=== PATIENT | female | born 1990 | race Caucasian/White ===

== ENCOUNTER → 2024-03-02 11:20 | Outpatient (BNVA) | payer MEDICAID, SELFPAY | PROVIDERS: PCP Nurse Practitioner Family; Visit Provider Family Medicine | DX: Z34.90 Encounter for supervision of normal pregnancy, unspecified, unspecified trimester (principal); E03.9 Hypothyroidism, unspecified; R30.0 Dysuria | CPT/HCPCS: 80307; 81000; 81025; 84144; 84439; 84443; 84702; 85025; 86592; 86762; 86803; 86850; 86900; 87086; 87340; 87491; 87591; 87624; 87806 ==

== ENCOUNTER 2024-03-27 11:12 | Outpatient (CLI) | payer MEDICAID, SELFPAY ==
--- NOTE | 2024-03-27 11:15 | US_ITS ---
WS: [id number] EARLY OBSTETRICAL ULTRASOUND (<14 WEEKS). HISTORY: Dating US COMPARISON: None available. Single intrauterine gestational sac is identified. Cardiac activity at 163 BPM. [place]-rump length sabrina sures 7.5 cm which corresponds to a gestation of 13w4d. Normal-appearing yolk sac and amnion demonstr ated. No subchorionic hemorrhage. No free fluid. Normal size ovaries with no mass. US/US OB <= 14 weeks fetus [id number] IMPRESSION: 1. Single intrauterine gestation of 13w4d with an EDC of 09/28/2024. 2. Normal cardiac activity.
--- NOTE | 2024-03-27 12:00 | US_ITS ---
WS: [id number] THYROID ULTRASOUND HISTORY: Thyroid nodule COMPARISON: 09/08/2017 Right lobe: 1.9 cm x 2.2 cm x 4.9 cm (w x ap x l). Volume: 9.5 cm3. Normal sized gland. Complex cystic mass with septations is identified involving the anterior thyroid. This is a mixed cystic and solid mass. There is now a mural nodule associated with the anterior cyst ic mass. The entire cyst measures 1.7 x 1.5 x 2.0 cm. The intramural nodular component measures 0.7 x 0.8 x 1.0 cm. There is increased vascularity within the mural nodule. Left lobe: 1.3 cm x 1.4 cm x 4.7 cm (w x ap x l). Volume: 4.1 cm3. Normal size and echotexture. No significant or dominant nodules are present. Colloid cyst in the supe rior thyroid measures 0.3 x 0.5 x 0.8 cm. Isthmus: 0.3 cm. US/US thyroid [id number] IMPRESSION: 1. TI-RADS 3; RIGHT thyroid nodule. Complex cystic nodule is changed since 09/08. There is now a mural nodule associated with the more anterior portion of this hemorrhagic nodule. The mural nodule is 0.7 x 0.8 x 1.0 cm with increased vascularity. Suggest 1 year repeat ultrasound follow-up. If this nodule increa ses in size FNA should be attempted. 2. Colloid cyst LEFT thyroid.
== END 2024-03-27 11:13 | disposition home or self-care (01) ==
LOC: RAD 11:15
PROVIDERS: PCP Nurse Practitioner Family; Visit Provider Family Medicine
DX: Z34.80 Encounter for supervision of other normal pregnancy, unspecified trimester (principal); E04.2 Nontoxic multinodular goiter
CPT/HCPCS: 76536; 76801; 80307; 81000; 81025; 84144; 84439; 84443; 84702; 85025; 86592; 86762; 86803; 86850; 86900; 87086; 87340; 87491; 87591; 87624; 87806

== ENCOUNTER → 2024-05-14 09:38 | Outpatient (BNVA) | payer MEDICAID, SELFPAY | PROVIDERS: PCP Nurse Practitioner Family; Visit Provider Family Medicine | DX: Z34.80 Encounter for supervision of other normal pregnancy, unspecified trimester (principal); A74.9 Chlamydial infection, unspecified; R30.0 Dysuria | CPT/HCPCS: 87086; 87491; 87591 ==

== ENCOUNTER 2024-05-28 13:01 | Outpatient (CLI) | payer MEDICAID, SELFPAY ==
--- NOTE | 2024-05-28 12:45 | USR_ITS ---
PROCEDURE INFORMATION: Exam: US After First Trimester, Transabdominal Exam date and time: 05/28/2024 1:08 PM Age: 33 years old Clinical indication: Screening exam; Routine US, uterus; Additional info: Anatomy US - in the next 1-2 weeks if possible LABS AND CLINICAL REPORTS: Gestational age (Established): 22 w 4 d Estimated due date (Established): 09/27/2024 TECHNIQUE: Imaging protocol: Real-time transabdominal obstetrical ultrasound of the maternal pelvis and a second or third trimester with image documentation. COMPARISON: US OB <= 14 weeks fetus [id number] 03/27/2024 11:58 AM FINDINGS: Gestation: Single live intrauterine gestation. heart rate: 144 bpm. presentation and position: Vertex. Placenta: Unremarkable. No subchorionic bleed. Placenta is anterior. Amniotic fluid (Qualitative): Amniotic fluid is normal for gestational age. Amniotic fluid index: JOSHUA is 15.1 cm. ANATOMY: midline falx: Normal cerebellum: Normal lateral ventricles: Normal cisterna magna: Normal choroid plexus: Normal face: Not well visualized heart four-chamber view, heart size and position: Normal heart right ventricular outflow tract: Normal heart left ventricular outflow tract: Normal kidneys: Normal stomach: Normal urinary bladder: Normal spine: Normal Umbilical cord and insertion: Normal. Normal 3 vessel cord upper limbs: Normal lower limbs: Normal external genitalia: Normal BIOMETRY: Gestational age (AUA): 22 weeks 6 days Estimated due date (AUA): 09/25/2024 Biparietal diameter (BPD): 5.49 cm. EGA (BPD) is 22 w 5 d. 52.3 % percentile Head circumference (HC): 20.95 cm. EGA (HC) is 23 w 0 d. 55.9 % percentile Abdominal circumference (AC): 0 cm. 0 % percentile Femur length (FL): 3.97 cm. EGA (FL) is 22 w 6 d. 46.6 % percentile FL/HC: 18.95. (Normal range: 19.09 - 20.71) FL/BPD: 72.31 MATERNAL: Uterus: Unremarkable. Cervix: Unremarkable closed cervix measuring 3.8 cm in length. Right ovary/adnexa: Obscured by lack of adequate acoustic window. Left ovary/adnexa: Obscured by lack of adequate acoustic window. Intraperitoneal space: No intraperitoneal free fluid. US/US OB >= 14 weeks fetus [id number] IMPRESSION: Single live intrauterine gestation with estimated age of 22 weeks 6 days.
== END 2024-05-28 13:02 | disposition home or self-care (01) ==
LOC: RAD 13:02
PROVIDERS: PCP Nurse Practitioner Family; Visit Provider Family Medicine
DX: Z34.80 Encounter for supervision of other normal pregnancy, unspecified trimester (principal); Z3A.22 22 weeks gestation of pregnancy
CPT/HCPCS: 76805

== ENCOUNTER → 2024-06-11 11:01 | Outpatient (BNVA) | payer MEDICAID, SELFPAY | PROVIDERS: PCP Nurse Practitioner Family; Visit Provider Family Medicine | DX: Z34.80 Encounter for supervision of other normal pregnancy, unspecified trimester (principal); Z3A.00 Weeks of gestation of pregnancy not specified | CPT/HCPCS: 82950 ==

== ENCOUNTER 2024-06-18 14:25 | Oncology outpatient (recurring) (ONCR) | payer MEDICAID, SELFPAY ==
[2024-06-18] MEDS: rho(d) immune globulin 1,500 unit Syringe 1500 UNIT IM (15:12)
== END 2024-07-05 23:59 | disposition home or self-care (01) ==
PROVIDERS: PCP Nurse Practitioner Family; Visit Provider Family Medicine
DX: O26.899 Other specified pregnancy related conditions, unspecified trimester; Z67.91 Unspecified blood type, Rh negative; Z79.899 Other long term (current) drug therapy
CPT/HCPCS: 96372; J2790

== ENCOUNTER → 2024-07-06 09:51 | Outpatient (BNVA) | payer MEDICAID, SELFPAY | PROVIDERS: PCP Nurse Practitioner Family; Visit Provider Family Medicine | DX: O99.810 Abnormal glucose complicating pregnancy (principal) | CPT/HCPCS: 82951; 82952 ==

== ENCOUNTER → 2024-08-06 11:11 | Outpatient (BNVA) | payer MEDICAID, SELFPAY | PROVIDERS: PCP Nurse Practitioner Family; Visit Provider Family Medicine | DX: Z34.90 Encounter for supervision of normal pregnancy, unspecified, unspecified trimester (principal); Z3A.00 Weeks of gestation of pregnancy not specified | CPT/HCPCS: 85025 ==

== ENCOUNTER → 2024-09-03 10:34 | Outpatient (BNVA) | payer MEDICAID, SELFPAY | PROVIDERS: PCP Nurse Practitioner Family; Visit Provider Family Medicine | DX: Z34.80 Encounter for supervision of other normal pregnancy, unspecified trimester (principal); R21 Rash and other nonspecific skin eruption; L29.9 Pruritus, unspecified; Z51.81 Encounter for therapeutic drug level monitoring | CPT/HCPCS: 80053; 82542; 85025; 87081 ==

== ENCOUNTER 2024-10-04 03:35 | Inpatient (IN) | payer MEDICAID, SELFPAY ==
[2024-10-04] VITALS (47 sets, daily range): BP systolic 113–191; BP diastolic 54–94; PULSE 58–129; RESP 16; TEMP 35.9–37; O2SAT 97–99; BMI 32.4
[2024-10-04 03:22] LABS: Basophils % 0.1 %; Eosinophils # 0.1 10^3/uL (0.0-0.8); Hematocrit 34.7 % (36-47); Lymphocytes # 1.4 10^3/uL (0.8-4.8); Lymphocytes % 21.1 %; Mean Corpuscular HGB Conc 33.4 g/dL (30-55); Mean Corpuscular Hemoglobin 29.8 pg (27-33); Mean Corpuscular Volume 89.2 fl (85-98); Mean Platelet Volume 11.6 fL (7.4-10.4); Monocytes # 0.4 10^3/uL (0.2-0.9); Monocytes % 5.7 %; Neutrophils # 4.88 10^3/uL (1.8-7.7); Neutrophils % 71.8 %; Nucleated Red Blood Cells % 0 %; Platelet Count 187 10^3/cmm (157-399); Red Blood Count 3.89 10^6/uL (3.85-5.65); Red Cell Distribution Width 14.6 % (12.1-15.1); White Blood Count 6.81 10^3/uL (3.29-11.43)
[2024-10-04 03:39] LABS: Nitrazine Paper, PH Positive
[2024-10-04] MEDS: dextrose 5%-lactated ringers 1,000 ML 125 ML IV (04:10)
[2024-10-04] MEDS: ampicillin 2,000 MG in sodium chloride 0.9% (plus) 50 ML 100 MG IV (04:10)
[2024-10-04] MEDS: oxytocin 30 UNIT/500 ML BAG IV (05:29)
--- NOTE | 2024-10-04 08:31 | P.HP_ITS ---
Providers/Chief Complaint 2 Admitting Physician: Luis Coreas MD Primary Care Provider: Faye Smith APN Chief Complaint: Poss SROM History of Present Illness Jennifer Greene is a 34 year old @ 40.6 wks by LMP c/w 13 wk US. Preg c/b thyroid nodule, 1st TM bleeding, O negative, Chlamydia in 1st TM, thyroid nodule, anemia, GBS positive. The patient presented to labor and delivery triage on the traveling missionary of 10/04/2024 with concerns for leakage of fluid. The patient had noted some mild leakage of fluid and put a pad on and went back to bed. By 1 AM, she got up to go to the bathroom and noticed a large gush of fluid. Because of this she went to triage. She was noted to be grossly ruptured. The patient was not having any significant contractions. The patient denies any chest pains, shortness of breath, nausea, vomiting, diarrhea, constipation, vaginal bleeding, dysuria, fever. Medications/Allergies Home Medications Medication Instructions Recorded Confirmed Last Taken Type vitamins no.154-ferrous tab PO 03/02/24 09/24/24 Unknown History fumarate 27 mg-folic acid 1 mg tablet ferrous sulfate 325 mg (65 mg 325 mg PO DAILY 08/20/24 09/24/24 Unknown History iron) tablet Allergies Allergy/AdvReac Type Severity Reaction Status Date / Time No Known Allergies Allergy Verified 09/24/24 09:02 PFSH Acute 2 PFSH: Medical History Thyroid nodule Surgical History No pertinent past surgical history Family History Mother Thyroid disease Diabetes Sister Thyroid disease Social History Smoking and tobacco/nicotine status: never used tobacco/nicotine Alcohol intake: never Substance/Drug Use: never Female Reproductive History: : 2 Vitals/I&O/Wt Last Vital Signs Temp 98.6 F 10/04/24 08:20 Pulse 66 10/04/24 08:22 BP 122/70 10/04/24 08:22 O2 Del Method Room Air 10/04/24 04:58 10/03/24 10/04/24 10/04/24 22:59 06:59 14:59 Intake Total 3.017 / 3.017 Balance 3.017 / 3.017 Weight last 48 hrs Weight 207 lb Physical Exam 2 Narrative: General: Alert and oriented x3 Eyes: Pupils equal round and reactive to light and accommodation Mouth: Mucous membranes moist, pharynx non-erythematous Cardiac: Regular rate and rhythm without murmurs Lungs: Clear to auscultation bilaterally without wheezes, crackles or rhonchi Abdomen: Soft, non-tender, fundus consistent with gestational age Extremities: Trace edema in the bilateral lower extremities Data 10/04/24 03:05 A&P Assessment and plan (1) Supervision of normal intrauterine in multigravida: The patient had spontaneous rupture of membranes. She was not davey significantly, so IV Pitocin was added and will be titrated up. Currently she is davey every 2 to 3 minutes. heart tones are in the mid 130s with moderate variability and good accelerations with a category 1 tracing. The patient is 2.5 cm dilated. We will proceed with augmentation of labor using IV Pitocin. There are no signs of infection currently. Proceed with routine intrapartum management. (2) Spontaneous rupture of membranes: Attestations 2 Medical Necessity Statement*: The patient will be here for greater than 2 midnights for intrapartum and management of labor delivery. Coding Level of Care Code Acute Code for Chg Fwd Diagnoses Supervision of normal intrauterine in multigravida Z34.80 Spontaneous rupture of membranes
[2024-10-04] MEDS: ampicillin 1,000 MG in sodium chloride 0.9% (plus) 50 ML 100 MG IV (08:38)
[2024-10-04] MEDS: ondansetron 2 mg/ML SDV 2 mL 4 MG IVP (09:58)
--- NOTE | 2024-10-04 11:00 | P.ANES_ITS ---
Anesthesia Procedures Procedure/Date: 10/04/24 Epidural: Time Out Performed: Yes Consents Signed: Procedure Consent Consent: requested by attending/covering physician, from patient, risks and benefits reviewed and patient agrees to proceed Lumbar Level: L4-L5 Epidural position: sitting Epidural procedure: sterile prep of area, 1% lidocaine to numb the area, 18 g needle, negative for paresthesia passed, neg for paresthesia, test dose given, 1.5% xylocaine 1:200k epi, 0.2% Ropivacaine bolus ml (5), placed PCEA, no systemic response, sterile dressing applied, L.U.D. no apparent complications and 0.2% Ropiavacaine @ mls/hr Additional Comments: Epidural taken over from Dr Garrison who had attempted (x1) to place epidural. 1 attempt by RADIAL DRILL PRESS OPERATOR at L4-L5 successful. L OR at 6cm, catheter easily threaded to 5cm in the space. VS monitored throughout and remained stable. Pt educated on SPINNING MACHINE TENDER and reporting decreased pain with contractions.
--- NOTE | 2024-10-04 12:05 | P.PCNOB_ITS ---
Delivery Note: Date of delivery: October 04, 2024 Pre-delivery diagnoses: 1. Intrauterine at 40.6 weeks gestation 2. Blood type O- 3. Chlamydia in first trimester with te st of cure 4. Thyroid nodule 5. Anemia 6. GBS positive 7. Thyroid nodule 8. First trimester bleeding 9. Spontaneous rupture of membranes Post-delivery diagnoses: 1. Intrauterine status post s pontaneous vaginal delivery at 40.6 weeks gestation 2. Blood type O- 3. Chlamydia in first trimester with te st of cure 4. Thyroid nodule 5. Anemia 6. GBS positive 7. Thyroid nodule 8. First trimester bleeding 9. Spontaneous rupture of membranes 10. Delivery of healthy infant female w eighing 7 pounds 13 ounces with Apgars of 8 and 9 Procedure: Spontaneous vaginal delivery Delivering Physician: Luis Coreas MD Estimated blood loss (mL): 100 Findings: 1. Healthy infant female weighing 7 erik nds 13 ounces with Apgars of 8 and 9 2. Intact placenta with central umbilic al cord insertion site Pre-Delivery Course: Jennifer Greene is a 34 year old G2 now P2 status post spontaneous vaginal delivery @ 40.6 wks by LMP c/w 13 wk US. Preg c/b thyroid nodule, 1st TM bleeding, O negative, Chlamydia in 1st TM, thyroid nodule, anemia, GBS positive. The patient presented to labor and delivery triage on the recording studio setup worker of 10/04/2024 with concerns for leakage of fluid. The patient had noted some mild leakage of fluid and put a pad on and went back to bed. By 1 AM, she got up to go to the bathroom and noticed a large gush of fluid. Because of this she went to triage. She was noted to be grossly ruptured. The patient was not having any significant contractions. The patient denied any chest pains, shortness of breath, nausea, vomiting, diarrhea, constipation, vaginal bleeding, dysuria, fever. The patient was started on IV Pitocin to increase her contractions and augment the labor process. She initially made slow change but eventually her cervix started to change more rapidly. During this phase, she did have a prolonged deceleration and the IV Pitocin was cut in half. The baby recovered well and did not have any further concerning heart tone findings. The patient continued to make change and was complete by 11:30 AM on 10/04/2024 Delivery: The patient began pushing at 11:39 AM on 10/04/2024. She pushed well and the infant delivered in the OA position at 11:42 AM on 10/04/2024. There was no nuchal cord. The left shoulder was anterior shoulder and it delivered with ease. The rest the infant delivered without complication. The infant's mouth and nose were bulb suction by myself and the was placed on the mother's chest where the nurses were awaiting to care for her. The cord was clamped after approximately 1 minute by myself and cut by the infant's father. Cord blood was obtained and traction was placed on the vocal cord. Uterine massage was carried out and the placenta delivered without complication at 11:47 AM on 10/04/2024. The placenta was noted to be intact with a central vocal cord insertion site. The cervix was inspected and no lacerations were noted. The vaginal wall was inspected and a small abrasion was noted in the periurethral region. No suturing was needed. Currently the patient's bleeding is decreasing well. Estimated blood loss was 100 mL. Currently both the patient and are doing well. History History History 2 Term Miscarriages/Ectopic Living Children Past Pregnancies Del. Date GA/Weeks Outcome Route Wt Inf Gender Labor Lgth Comp. Anesth esia Location 12/28/16 39 live - full term Vaginal 8 lb 5 oz Female 12 hours OM - Dr Viveros 10/04/24 40 live - full term Vaginal 7 lb 13 oz Female 10 hr [facility] O[facility] - [facility] Delivery Date: 12/28/16 Last Updated by: Luis Coreas MD No complications, no epidural A&P Assessment and plan (1) Spontaneous vaginal delivery: Coding Level of Care Code Acute Code for Chg Fwd Diagnoses Spontaneous vaginal delivery O80
[2024-10-04] MEDS: lanolin oint 7 gm 1 APPLIC TOPICAL (14:16)
[2024-10-04] MEDS: ibuprofen 800 mg tablet PO ×2 (14:16→21:00)
[2024-10-04] MEDS: benzocaine-menthol 78 gm Canister 1 SPRAY TOPICAL (14:16)
[2024-10-05 00:35] LABS: Hematocrit 30.4 % (36-47); Mean Corpuscular HGB Conc 32.6 g/dL (30-55); Mean Corpuscular Hemoglobin 29.4 pg (27-33); Mean Corpuscular Volume 90.2 fl (85-98); Mean Platelet Volume 11.5 fL (7.4-10.4); Platelet Count 184 10^3/cmm (157-399); Red Blood Count 3.37 10^6/uL (3.85-5.65); Red Cell Distribution Width 14.6 % (12.1-15.1); White Blood Count 8.97 10^3/uL (3.29-11.43)
[2024-10-05 02:27] VITALS: BP 107/54; PULSE 72; RESP 16; TEMP 37; O2SAT 97
[2024-10-05 06:10] VITALS: BP 117/78; PULSE 66; RESP 16; TEMP 36.9; O2SAT 97
--- NOTE | 2024-10-05 07:00 | ANE.PACU2 ---
Inpatient post-anesthesia follow up: Airway intact: Yes Vital signs: Temperature 97.9 F Pulse Rate 75 Respiratory Rate 17 Blood Pressure 132/87 Pulse Oximetry 97 Oxygen Delivery Me thod Room Air Oxygen Flow Rate Fraction of Inspir ed Oxygen Hydration adequate: Yes Nausea and vomiting: No Pain level: 1 Mental status: Baseline Epidural Start/End: Epidural Start Date: 10/03/24 Epidural Start Time: 10:45 Epidural End Date: 10/04/24 Epidural End Time: 12:00
[2024-10-05] MEDS: PRENATAL VIT NO.130/IRON/FOLIC 1 EACH TABLET PO (08:49)
[2024-10-05] MEDS: docusate sodium 100 mg Capsule PO (08:49)
[2024-10-05] MEDS: ibuprofen 800 mg tablet PO (08:49)
[2024-10-05 10:16] VITALS: BP 106/61; PULSE 92; RESP 16; TEMP 36.8
--- NOTE | 2024-10-05 12:52 | P.DS_ITS ---
Discharge Providers Date of Admission: 10/04/24 03:35 Date of Discharge: October 05, 2024 Attending Provider at Admission: Luis Coreas MD Attending Provider at Discharge: Luis Coreas MD Primary Care Provider: Faye Smith APN Diagnoses at Discharge Discharge Diagnosis (1) Spontaneous vaginal delivery: Status: Acute Other Information Additional DC diagnoses/information: 1. Intrauterine status post spontaneous vaginal delivery at 40.6 weeks gestation 2. Blood type O- 3. Chlamydia in first trimester with test of cure 4. Thyroid nodule 5. Anemia 6. GBS positive 7. Thyroid nodule 8. First trimester bleeding 9. Spontaneous rupture of membranes 10. Delivery of healthy infant female weighing 7 pounds 13 ounces with Apgars of 8 and 9 Reason for Visit Reason for Visit: Poss SROM Brief History: Jennifer Greene is a 34 year old G2 now P2 status post spontaneous vaginal delivery @ 40.6 wks by LMP c/w 13 wk US. Preg c/b thyroid nodule, 1st TM bleeding, O negative, Chlamydia in 1st TM, thyroid nodule, anemia, GBS positive. The patient presented to labor and delivery triage on the solution specialist of 10/04/2024 with concerns for leakage of fluid. The patient had noted some mild leakage of fluid and put a pad on and went back to bed. By 1 AM, she got up to go to the bathroom and noticed a large gush of fluid. Because of this she went to triage. She was noted to be grossly ruptured. The patient was not having any significant contractions. Hospital Course Hospital Course The patient was started on IV Pitocin to increase her contractions and augment the labor process. She initially made slow change but eventually her cervix started to change more rapidly. The patient continued to make change and was complete by 11:30 AM on 10/04/2024. The patient began pushing at 11:39 AM on 10/04/2024. She pushed well and the delivered in the OA position at 11:42 AM on 10/04/2024. The delivery was uncomplicated and she only had a small abrasion on the periurethral region. The patient did not need any stitches. , the patient's bleeding has been slow. She has been ambulating, voiding, passing gas and tolerating food by mouth. She is showing no signs of complications. Routine discharge instructions were discussed. All questions were answered. The patient will plan to follow-up with me at 6 weeks or sooner if needed. The patient and her are in agreement with the current plan of care. Physical Exam Narrative: General: Alert and oriented x3 Cardiac: Regular rate and rhythm without murmurs Lungs: Clear to auscultation bilaterally without wheezes, crackles or rhonchi Abdomen: Soft, mild tenderness over uterus. The uterus is firm and 2 cm below the umbilicus. Extremities: Trace edema in the bilateral lower extremities Urinary Catheter Management: Strong Latex: Cath Placed During This Visit: yes, but has since been removed by the nurse Reason for Continuing Indwelling Catheter: Decision to DC Catheter Urinary Catheter Date of Insertion: 10/04/24 Urinary Catheter Time of Insertion: 11:30 Date Urinary Catheter Removed: 10/04/24 Time Urinary Catheter Discontinued: 11:39 Discharge Data Studies Completed and Pending Laboratory Results WBC 8.97 10^3/uL (3.29-11.43) 10/05/24 00:15 RBC 3.37 10^6/uL (3.85-5.65) L 10/05/24 00:15 Hgb 9.90 g/dL (11.27-16.99) L 10/05/24 00:15 Hct 30.4 % (36-47) L 10/05/24 00:15 MCV 90.2 fl (85-98) 10/05/24 00:15 MCH 29.4 pg (27-33) 10/05/24 00:15 MCHC 32.6 g/dL (30-55) 10/05/24 00:15 RDW 14.6 % (12.1-15.1) 10/05/24 00:15 Plt Count 184 10^3/cmm (157-399) 10/05/24 00:15 MPV 11.5 fL (7.4-10.4) H 10/05/24 00:15 Neut % (Auto) 71.8 % 10/04/24 03:05 Lymph % (Auto) 21.1 % 10/04/24 03:05 [place] % (Auto) 5.7 % 10/04/24 03:05 Eos % (Auto) 1.0 % 10/04/24 03:05 Baso % (Auto) 0.1 % 10/04/24 03:05 Neut # (Auto) 4.88 10^3/uL (1.8-7.7) 10/04/24 03:05 Lymph # (Auto) 1.4 10^3/uL (0.8-4.8) 10/04/24 03:05 [place] # (Auto) 0.4 10^3/uL (0.2-0.9) 10/04/24 03:05 Eos # (Auto) 0.1 10^3/uL (0.0-0.8) 10/04/24 03:05 Baso # (Auto) 0.0 10^3/uL (0.0-0.1) 10/04/24 03:05 Nucleated RBC % (auto) 0 % 10/04/24 03:05 Nucleated RBCs # 0.0 /100WBC 10/04/24 03:05 Fluid pH (paper) Positive H 10/04/24 02:20 Blood Type O Negative 10/04/24 03:05 Rho(D) Type Rh negative 10/04/24 03:05 Antibody Screen Negative 10/04/24 03:05 Screen Negative (Negative) 10/05/24 00:15 Vitals Last Vital Signs Temp 98.3 F 10/05/24 10:16 Pulse 92 10/05/24 10:16 Resp 16 10/05/24 10:16 BP 106/61 10/05/24 10:16 Pulse Ox 97 10/05/24 06:10 O2 Del Method Room Air 10/05/24 10:16 Discharge Plan Discharge Patient Disposition: Home Condition: Good Prescriptions: New ibuprofen 800 mg Tablet 800 mg PO TID Qty: 30 0RF Continued PNV no.154-iron fumarate-folic 27 mg iron- 1 mg tablet PO ferrous sulfate 325 mg (65 mg iron) tablet 325 mg PO DAILY Qty: 30 0RF Discharge Orders: Discharge Order (Routine); Ordered 10/05/24 Ordered By: Luis Coreas Referrals: Luis Coreas MD [Physician] - 6 Weeks Discharge Diet: Regular Discharge Activity: Increase activity as tolerated Patient Instructions: Depression (DC), Bleeding (DC), Preeclampsia and Eclampsia After Delivery (GEN), Hemorrhage (DC), OB Discharge Report, OB Food/Drug Interaction Guide, Opioid Safety, OB [facility], OB Vaginal Deliveries Activity Restrictions/Additional Instructions: Nothing per vagina for 6 weeks. Showers are recommended instead of baths for the first 6 weeks. Discharge Attestations Time Spent in Discharge Care*: greater than 30 min Quality Metrics Clinical Quality Measures [ No reported AMI, CVA or VTE this stay] Coding Level of Care Code Acute Code for Chg Fwd Diagnoses Spontaneous vaginal delivery O80
[2024-10-05 15:30] VITALS: BP 132/87; PULSE 75; RESP 17; TEMP 36.6; O2SAT 97
== END 2024-10-05 15:30 | disposition home or self-care (01) | DRG 807 ==
LOC: OPOB 03:36 → OBGYN 03:36
PROVIDERS: Admitting Provider Family Medicine; PCP Nurse Practitioner Family; Visit Provider Family Medicine
DX: O99.824 Streptococcus B carrier state complicating childbirth (principal); Z37.0 Single live birth; Z3A.40 40 weeks gestation of pregnancy; O99.02 Anemia complicating childbirth; O76 Abnormality in fetal heart rate and rhythm complicating labor and delivery; O99.284 Endocrine, nutritional and metabolic diseases complicating childbirth; E07.9 Disorder of thyroid, unspecified
CPT/HCPCS: 36415; 36430; 51702; 59025; 59409; 83986; 85025; 85027; 85460; 86850; 86900; 90384; 96374; 99211; J0290; J2405; J2590; J7121